=== PATIENT | male | born 1985 ===

== ENCOUNTER 2020-02-09 01:49 | Emergency (ER) | payer OTHER ==
[~2020-02-09] VITALS: Ht 180.3 cm; Wt 111.1 kg
[~2020-02-09 01:49] MED LIST: ALPR1 PO; BUPR150ER PO; BUSP5 PO; QUET100 PO; TRAZ50 PO
[2020-02-09] MEDS ORDERED: BUPR150ER PO (02:43)
[2020-02-09] MEDS ORDERED: QUETIAPINE FUM400 M2 PO (02:43)
[2020-02-09] MEDS ORDERED: Buspirone HCl15 MG PO (02:43)
[2020-02-09] MEDS ORDERED: Seroquel300 MG PO (03:03)
== END 2020-02-09 03:10 | disposition home or self-care (01) ==
LOC: ER 01:49
DX: F25.9 Schizoaffective disorder, unspecified (principal); F31.9 Bipolar disorder, unspecified; F17.210 Nicotine dependence, cigarettes, uncomplicated; Z88.0 Allergy status to penicillin; Z79.899 Other long term (current) drug therapy
CPT/HCPCS: 99284